=== PATIENT | female | born 1975 | race Caucasian/White ===

== ENCOUNTER 2024-07-25 08:30 | Outpatient (RCR) | payer OTHER, SELFPAY ==
[2024-07-04 10:07] LABS: Basophils Absolute Auto 0.02 K/uL (0.00-0.30); Basophils Percent Auto 0.4 % (0.0-3.0); Eosinophils Absolute Auto 0.03 K/uL (0.00-0.50); Eosinophils Percent Auto 0.6 % (0.0-7.0); Hematocrit 37.2 % (33.0-51.0); Hemoglobin* 12.1 gm/dL (12.0-16.0); Immature Granulocytes Abs Auto 0.01 K/uL (0.00-0.30); Immature Granulocytes Pct Auto 0.2 %; Lymphocytes Absolute Auto 1.55 K/uL (0.90-2.90); Lymphocytes Percent Auto 29.5 % (20-44); Mean Corpuscular HGB Conc 33 gm/dL (32-36); Mean Corpuscular Hemoglobin 28 pg (26-34); Mean Corpuscular Volume 87 fL (80-100); Monocytes Percent Auto 7.4 % (0.0-11.0); Neutrophils Absolute Auto 3.26 K/uL (1.7-7.0); Neutrophils Percent Auto 61.9 % (42.0-72.0); Platelet Count* 114 K/uL (140-440); RDW Coefficient of Variation % 14.3 % (11.5-15.5); Red Blood Count 4.26 m/uL (4.00-5.20); Slide Review Reflex No; White Blood Count* 5.26 K/uL (4.50-11.00)
[2024-07-04 10:17] LABS: Albumin* 3.9 g/dL (3.3-5.0); Chloride* 100 mmol/L (96-114)
[2024-07-04 10:18] LABS: Potassium* 3.6 mmol/L (3.6-5.1); Sodium* 134 mmol/L (135-149)
[2024-07-04 10:20] LABS: Anion Gap 7 mEq/L (7-15); Aspartate Amino Transferase* 21 U/L (12-35); Bilirubin Total* 0.3 mg/dL (0.1-1.5); Carbon Dioxide* 27 mmol/L (20-32); Creatinine* 0.6 mg/dL (0.5-1.5); Est. Creatinine Clearance* 88.72; Estimated Glomerular Filt Rate 109 ml/min
[2024-07-04 10:21] LABS: Alanine Aminotransferase* 30 U/L (4-35); Alkaline Phosphatase* 50 U/L (40-150); Blood Urea Nitrogen* 14 mg/dL (7-30); Calcium* 8.9 mg/dL (8.4-10.6); Glucose* 175 mg/dL (60-115); Total Protein* 6.6 g/dL (6.0-8.3)
--- NOTE | 2024-07-04 11:44 | URNOTE ---
Request received for authorization for?Carboplatin AUC 5 (J9045), Alimta (J9305), Supportive meds: Aloxi (J2469), Emend (J1453). Prior authorization is not required per [employer] on behalf of [employer], Ref#[id number]. Following review :Tremelimumab-actl (Imjudo) (J9347) is approved with date range: 07/06/2024 to 01/02/2025, case #[id number] and Durvalumab (Imfinzi) (J9173) with date range: 07/06/2024 to 01/04/2025, case # [id number].
[2024-07-05 21:52] LABS: HCG Quantitative* 7.28 mIU/mL
[2024-07-06 12:29] VITALS: BP 108/69; PULSE 91; RESP 16; TEMP 36.6; O2SAT 98
[2024-07-06] MEDS: FOSAPREPITANT 150 MG inj 150 MG in 0.9 % SODIUM CHLORIDE 250 ml 250 ML 510 MG IVPB (13:22)
[2024-07-06] MEDS: PALONOSETRON 0.25 MG/5 ML inj IV (13:22)
--- NOTE | 2024-07-06 13:54 | ONC.NURNOTE ---
Urine HCG results reviewed with patient prior to ordering todays chemotherapy Patient reports that there is no chance of , she is starting to go through menopause and is not sexually active with a male
[2024-07-06] MEDS: [UNRECOGNIZED DRUG - OTHER] IVPB (14:04)
[2024-07-06] MEDS: PEMETREXED IVPB (14:04)
[2024-07-06] MEDS: TUBING SECONDARY IVPB (14:04)
[2024-07-06] MEDS: CARBOplatin 750 MG, TUBING SECONDARY 1 EACH in 0.9 % SODIUM CHLORIDE 250 ml 250 ML 650 MG IVPB (14:21)
--- NOTE | 2024-07-06 15:39 | ONC.NURNOTE ---
Pt here for cycle 2 carbo/alimta. Pt took po dexamethasone yesterday and this morning. Pt tolerated infusion well. Pt on 3 liters nasal cannula while here in [facility]. Pt given calendar on when to take antiemetics. Pt scheduled to see Dr. Luque in 3 weeks prior to cycle 3. Pt verbalized understanding of plan of care.
--- NOTE | 2024-07-07 13:27 | ONC.NURNOTE ---
Follow up chemotherapy call; Reports no concerns, denies any nausea- states she feels well took her dex this am has not used any home antiemetics- Lindy was encouraged to take something as the IV antiemetics may wear off today Lindy has a calendar with instructions for antiemetics
--- NOTE | 2024-07-07 15:34 | ONC.NURNOTE ---
Fur Comber called pt to check on her after cycle 2 carbo/Alimta yesterday. Pt states no concerns at this time. Pt instructed to call [facility] if she has any questions or concerns.
--- NOTE | 2024-07-25 08:06 | ONC.NURNOTE ---
Pt left a message on 07/24/24 stating she is cancelling her appt for 07/25/24 and chemotherapy for 07/27/24. Pt stated she is going to get treatment in [place].
--- NOTE | 2024-07-26 11:27 | ONC.NURNOTE ---
Patient left message on Thursday night cancelling all appointments. Patient was called and clarified that she will be going to [place] for all appointments going forward. She confirmed this. All appointments are cancelled and patient's chart taken down.
== END 2024-12-31 23:59 | disposition home or self-care (01) ==
LOC: CCIC 08:30
PROVIDERS: Clinical Nurse Specialist; Visit Provider Internal Medicine Hematology & Oncology
DX: C34.91 Malignant neoplasm of unspecified part of right bronchus or lung (principal)
CPT/HCPCS: 36415; 80053; 84443; 84702; 85025; 96366; 96367; 96375; 96376; 96411; 96413; 96417; 99202; 99205; 99211; J1453; J2469; J7050; J9045; J9305